=== PATIENT | female | born 1960 | race American Indian/Alaskan Native ===

== ENCOUNTER 2019-01-07 16:39 | Emergency (ER) | payer OTHER ==
[2019-01-07 16:43] VITALS: BP 216/93
--- NOTE | 2019-01-07 16:43 | Event Note ---
ED Screening Note ED Screening Note: SP FALL AT WORK TODAY CO R KNEE PAIN PMH HTN- ON MEDS P[facility] RX NORVASC LISINOPRIL AMBULATORY This initial assessment/diagnostic orders/clinical plan/treatment(s) is/are subject to change based on patients health status, clinical progression and re- assessment by fellow clinical providers in the ED. Further treatment and workup at subsequent clinical providers discretion. Patient/guardian urged not to elope from the ED as their condition may be serious if not clinically assessed and managed. Initial orders include:
[2019-01-07] MEDS ORDERED: IBUPROFEN PO ONE (16:44)
--- NOTE | 2019-01-07 17:06 | Emergency Department Report ---
ED Fall HPI - General Chief Complaint: Fall Stated Complaint: FALL Time Seen by Provider: 01/07/19 17:03 Source: patient Mode of arrival: Ambulatory - History of Present Illness Initial Comments: 58-year-old -Thai female presents to the emergency room for complaint of right knee pain after having a fall this morning at work. Patient has a past medical history of hypertension and is currently on Norvasc and lisinopril. She has allergy to codeine. Surgical history of cholecystectomy. Complaint: fall -: This morning Fall From: standing Place Fall Occurred: work Loss of Consciousness: none Prolonged Down Time?: no Symptoms Prior to Fall: none Location - Extremities: Right: Knee Severity scale (0 -10): 9 - Related Data Previous Rx's Medication Instructions Recorded Last Taken Type Ibuprofen [Motrin 600 MG tab] 600 mg PO Q8H PRN #18 tablet 01/07/19 Unknown Rx Allergies Allergy/AdvReac Type Severity Reaction Status Date / Time codeine Allergy Swelling Verified 01/07/19 16:40 ED Review of Systems ROS: Stated complaint: FALL Other details as noted in HPI ED Past Medical Hx - Past Medical History Hx Hypertension: Yes - Surgical History Hx Cholecystectomy: Yes - Social History Smoking Status: Never Smoker Substance Use Type: None - Medications Home Medications: Home Medications Medication Instructions Recorded Confirmed Last Taken Type Ibuprofen [Motrin 600 MG tab] 600 mg PO Q8H PRN #18 tablet 01/07/19 Unknown Rx ED Physical Exam - General Limitations: No Limitations General appearance: alert, in no apparent distress - Head Head exam: Present: atraumatic, normocephalic - Eye Eye exam: Present: normal appearance - ENT ENT exam: Present: mucous membranes moist - Expanded Lower Extremity Exam Right Hip exam: Present: full ROM Upper Leg exam: Present: normal inspection, full ROM Knee exam: Present: tenderness, swelling, effusion. Absent: abrasion, laceration, ecchymosis, dislocation, erythema Lower Leg exam: Present: normal inspection, full ROM. Absent: tenderness, swelling Foot/Toe exam: Present: normal inspection, full ROM. Absent: tenderness Neuro vascular tendon exam: Present: no vascular compromise - Back Exam Back exam: Present: normal inspection - Neurological Exam Neurological exam: Present: alert, oriented X3 - Psychiatric Psychiatric exam: Present: normal affect, normal mood ED Course Vital Signs 01/07/19 16:42 Temperature 98.1 F Pulse Rate 84 Respiratory 14 Rate Blood Pressure 216/93 O2 Sat by Pulse 98 Oximetry ED Medical Decision Making - Radiology Data Radiology results: report reviewed Patient: MICHAEL SHARIF MR#: [id number] : 1960 Acct:[id number] Age/Sex: 58 / F ADM Date: 01/07/19 Loc: ED Attending Dr: Ordering Physician: FAMILIA THORNTON Date of Service: 01/07/19 Procedure(s): XR knee 3V RT Accession Number(s): [id number] cc: FAMILIA THORNTON Fluoro Time In Minutes: PROCEDURE: XR KNEE 3V RT TECHNIQUE: AP, oblique and lateral views of the right knee HISTORY: Right KNEE PAIN COMPARISONS: None . FINDINGS: No acute fracture or dislocation is seen. The soft tissues demonstrate a moderate suprapatellar joint effusion. Joint spaces are maintained and bony mineralization is normal. Spurring off the anterior superior patella is noted. IMPRESSION: No acute bony abnormality. Moderate joint effusion This document is electronically signed by Luz Elena Cherry MD., January 07 2019 05:23:05 PM ET Transcribed By: [facility] Dictated By: LUZ ELENA CHERRY MD Electronically Authenticated By: LUZ ELENA CHERRY MD Signed Date/Time: 01/07/19 1725 DD/ 1648 TD/TT: 01/07/19 1700 - Medical Decision Making 58-year-old female comes in for right knee pain status post fall while at work. X-ray shows a patient with some moderate right knee effusion. No acute fractures are identified. Patient will have prescription for ibuprofen will rapidly with Valeriano bandage and have her follow up orthopedic provider next week. Information will be provided to patient discharge summary. Critical care attestation.: If time is entered above; I have spent that time in minutes in the direct care of this critically ill patient, excluding procedure time. ED Disposition Clinical Impression: Fall, Knee injury, Effusion of knee joint right Disposition: DC-01 TO HOME OR SELFCARE Is pt being admited?: No Does the pt Need Aspirin: No Condition: Stable Instructions: Knee Effusion (ED) Additional Instructions: Ibuprofen for pain management. Wear Valeriano bandage as been provided. Follow-up with orthopedic in next 3-5 days. Prescriptions: Ibuprofen [Motrin 600 MG tab] 600 mg PO Q8H PRN #18 tablet PRN Reason: Pain Referrals: WAYNE MANCILLA MD [Staff Physician] - 3-5 Days LEANA DORSEY MD [Staff Physician] - 3-5 Days Forms: Work/School Release Form(ED)
--- NOTE | 2019-01-07 17:25 | XRay Report ---
PROCEDURE: XR KNEE 3V RT TECHNIQUE: AP, oblique and lateral views of the right knee HISTORY: Right KNEE PAIN COMPARISONS: None . FINDINGS: No acute fracture or dislocation is seen. The soft tissues demonstrate a moderate suprapatellar joint effusion. Joint spaces are maintained and bony mineralization is normal. Spurring off the anterior s uperior patella is noted. IMPRESSION: No acute bony abnormality. Moderate joint effusion This document is electronically signed by Luz Elena Cherry MD., January 07 2019 05:23:05 PM ET
== END 2019-01-07 17:43 | disposition home or self-care (01) ==
LOC: ED 16:39
DX: S89.81XA Other specified injuries of right lower leg, initial encounter (principal); I10 Essential (primary) hypertension; Z88.6 Allergy status to analgesic agent; Z90.49 Acquired absence of other specified parts of digestive tract; W19.XXXA Unspecified fall, initial encounter; Y93.89 Activity, other specified; Y92.69 Other specified industrial and construction area as the place of occurrence of the external cause; Y99.0 Civilian activity done for income or pay
CPT/HCPCS: 99283